=== PATIENT | male | born 1940 | race Caucasian/White ===

== ENCOUNTER 2020-02-23 12:32 | Inpatient (IN) | payer OTHER, MEDICAID, SELFPAY ==
[~2020-02-23] VITALS: Ht 162.6 cm; Wt 68.0 kg
[2020-02-23 12:41] VITALS: BP_SYST 100
--- NOTE | 2020-02-23 12:42 | NUR ---
Patient to ER bed 7 to gown for evaluation. Side rails up. Report given to JODI AQUINO.
--- NOTE | 2020-02-23 12:45 | NUR ---
Patient presented to ER C/O of fever. Patient ambulatory to ER,BIB by son, A&Ox4, afebrile, skin pink & warm, ostomy to right abdomen right anterior abdomen well sealed, denies pain , denies N/V/D, Son of patient states patient had fever 2 days ago, and passed kidney stone 3 days ago.
--- NOTE | 2020-02-23 12:50 | NUR ---
SON OF PATIENT AT BEDSIDE
--- NOTE | 2020-02-23 13:15 | NUR ---
ER Dr. Rice at bedside examining patient.
--- NOTE | 2020-02-23 13:50 | NUR ---
RADIOLOGY AT BEDSIDE.
--- NOTE | 2020-02-23 14:10 | NUR ---
# 20 gauge angiocath placed to right AC . Use of asceptic technique. Opsite placed over site. Blood return noted. Blood for lab drawn from site. Flushed with 10 cc of normal saline. No evidence of infiltration noted. Patient tolerated well.
[2020-02-23 14:24] LABS: BILIRUBIN,URINE NEGATIVE (NEGATIVE); BLOOD, URINE 3+ (NEGATIVE); GLUCOSE,URINE NEGATIVE (NEGATIVE); KETONES,URINE NEGATIVE (NEGATIVE); LEUKOCYTE ESTERASE ,URINE 3+ (NEGATIVE); NITRITE, URINE NEGATIVE (NEGATIVE); PH,URINE 6.5 (5.0-8.0); PROTEIN URINE 1+ (NEGATIVE); UROBILINOGEN,URINE 0.2 (0.2-1.0)
[2020-02-23] MEDS ORDERED: cefTRIAXone 1 GM in D5W 50 ML IV ONE (14:30)
[2020-02-23] MEDS ORDERED: cefTRIAXone 1 GM VIAL ONE (14:31)
[2020-02-23 14:45] LABS: BACTERIA,URINE MANY /HPF (None Seen); CLARITY/URINE CLOUDY (CLEAR); COLOR,URINE RED (YELLOW); RBC,URINE >100 /HPF (0-3); WBC,URINE >100 /HPF (0-3)
[2020-02-23 15:04] LABS: BASOPHILS # (AUTO) 0.1 K/uL (0.0-0.2); BASOPHILS % (AUTO) 0.4 % (0.0-2.0); EOSINOPHILS # (AUTO) 0.1 K/uL (0.0-0.4); EOSINOPHILS % (AUTO) 0.5 % (0.0-4.0); HEMATOCRIT 30.4 % (36-54); HEMOGLOBIN 10.3 g/dL (14.0-18.0); LYMPHOCYTES # (AUTO) 1.3 K/uL (1.0-5.5); LYMPHOCYTES % (AUTO) 6.6 % (20.5-51.5); MEAN CORPUSCULAR HEMOGLOBIN 31 pg (27-31); MEAN CORPUSCULAR HGB CONC 34 % (32-36); MEAN CORPUSCULAR VOLUME 90 fL (79.0-98.0); MONOCYTES # (AUTO) 1.3 K/uL (0.0-1.0); MONOCYTES % (AUTO) 6.6 % (1.7-9.3); NEUTROPHILS # (AUTO) 16.4 K/uL (1.8-7.7); NEUTROPHILS % (AUTO) 85.9 % (40.0-70.0); PLATELET COUNT (AUTO) 304 K/uL (130-430); RED BLOOD CELL COUNT(AUTO) 3.38 MIL/uL (4.2-6.2); WHITE BLOOD COUNT (AUTO) 19.1 K/uL (4.8-10.8)
--- NOTE | 2020-02-23 15:15 | NUR ---
SON OF PATIENT PT RESTING IN [facility]
[2020-02-23 15:21] LABS: ANION GAP 11 (5-15); CALCIUM 9.1 mg/dL (8.4-11.0); CHLORIDE 93 mmol/L (98-107); CREATININE 3.24 mg/dL (0.55-1.30); GLUCOSE 262 mg/dL (70-99); POTASSIUM 4.3 mmol/L (3.5-5.1); SODIUM SERUM 126 mmol/L (136-145); UREA NITROGEN, BLOOD 68 mg/dL (8-21)
[2020-02-23 15:28] LABS: ALANINE AMINOTRANSFERASE 42 U/L (12-78); ALBUMIN 2.8 g/dL (3.4-4.8); ASPARTATE AMINOTRANSFERASE 19 U/L (10-37); LIPASE 214 U/L (73-393); TOTAL BILIRUBIN 0.7 mg/dL (0.0-1.0)
[2020-02-23 15:35] LABS: PROTHROMBIN TIME 9.9 SECS (9.5-12.5)
[2020-02-23] MEDS ORDERED: NS 500 ML IV ONE (16:45)
--- NOTE | 2020-02-23 16:47 | NUR ---
ADMIT ORDERS FROM DR. TOBAR
--- NOTE | 2020-02-23 17:01 | NUR ---
Patient will be admitted to care of DR. TOBAR. Admitted to TELE unit. Will go to room 101B. Belongings list completed. Complete and up to date summary report printed. SBAR report to be given at bedside with opportunity for questions.
[2020-02-23 17:20] VITALS: BP_SYST 119
--- NOTE | 2020-02-23 17:20 | NUR ---
ADMISSION NOTE: Received patient from ER via gurney. Patient admitted with diagnosis of Cholecystitis, renal failure. Patient is awake, alert, oriented X 3. Patient oriented to hospital room, call light, toileting, pain management and safety-teach back done. Patient informed that Tiffanie will be his nurse and that their room number is 101B. Personal belongings checked and Belongings List documented. Call light within reach.
[2020-02-23 17:29] VITALS: BP_SYST 119
[2020-02-23 17:34] VITALS: BP_SYST 119
--- NOTE | 2020-02-23 17:35 | NUR ---
INITIAL NOTE: RECEIVED PATIENT AND REPORT FROM ER NURSE JODI. PATIENT IS AWAKE AND ALERT x3 LAYING DOWN IN BED. PATIENT IS TOLERATING OXYGEN ON ROOM AIR WITH NO SIGNS OF DISTRESS OR SHORTNESS OF BREATH NOTED. IV SITE IS PATENT WITH NO SIGNS OF INFILTRATION NOTED AND RUNNING IV BOLUS FROM ER. PATIENT DENIES ANY PAIN AT THE MOMENT. PATIENT WAS GIVEN URINAL AT BEDSIDE AND SHOWN WHERE THE RESTROOM IS. PATIENT IN STABLE CONDITION. SAFETY, FALL, AND ASPIRATION PRECAUTIONS ARE IN PLACE. BED LOCKED IN LOWEST POSITION WITH CALL LIGHT IN REACH. WILL CONTINUE TO MONITOR PATIENT FOR ANY CHANGES.
[2020-02-23] MEDS ORDERED: POTA20TA83 PO (18:21)
[2020-02-23] MEDS ORDERED: FAMO-129 PO (18:21)
[2020-02-23] MEDS ORDERED: DRON2.5C22 PO (18:21)
[2020-02-23] MEDS ORDERED: ONDANSETRON HCL 4 MG/2 ML VIAL IVP PRN (18:30)
[2020-02-23] MEDS ORDERED: MORPHINE 2 MG/ML INJ. SYRINGE IVP PRN (18:30)
[2020-02-23] MEDS ORDERED: MORPHINE 4 MG/ML INJ. SYRINGE IVP PRN (18:30)
[2020-02-23] MEDS ORDERED: PIPERACILLIN/TAZO 3.375/DEX-IS 50 ML IV SCH (18:30)
[2020-02-23] MEDS ORDERED: ACETAMINOPHEN 325 MG TABLET PO PRN (18:30)
[2020-02-23] MEDS ORDERED: METOCLOPRAMIDE HCL 10 MG/2 ML VIAL IVP PRN (18:30)
[2020-02-23] MEDS: D5NS 1,000 ML IV SCH (18:50)
--- NOTE | 2020-02-23 18:55 | NUR ---
CLOSING NOTES: PATIENT IS AWAKE AND ALERT x3 LAYING DOWN IN BED. PATIENT IS TOLERATING OXYGEN ON ROOM AIR WITH NO SIGNS OF DISTRESS OR SHORTNESS OF BREATH NOTED. IV SITE IS PATENT WITH NO SIGNS OF INFILTRATION NOTED AND RUNNING IV FLUIDS ORDERED. PATIENT DENIES ANY PAIN AT THE MOMENT. PATIENT IN STABLE CONDITION. SAFETY, FALL, AND ASPIRATION PRECAUTIONS REMAINED IN PLACE THROUGHOUT THE SHIFT. BED LOCKED IN LOWEST POSITION WITH CALL LIGHT IN REACH. WILL ENDORSE PATIENT CARE TO ONCOMING LAYBOY OPERATOR NURSE.
--- NOTE | 2020-02-23 19:30 | NUR ---
OPENING NOTES: Received report from dayshift nurse. Patient is Cymro speaking, A & O x4 with no s/s of distress or discomfort. He is on room air with unlabored breathing. He has IV on left wrist with dry dressing. Patient is ambulatory with steady gait. Ensured all safety precautions. Bed is locked and in the lowest position. Call light within reach.
[2020-02-23 20:00] VITALS: BP_SYST 109
--- NOTE | 2020-02-23 20:00 | NUR ---
VITALS: Patient's BP is 109/61 HR at 49, asymptomatic. He has weak pulses. He does not have an c/o pain or discomfort and denies any dizziness. Patient states he is comfortable at this time. Patient has T wave elevation on tele. Will notify .
--- NOTE | 2020-02-23 20:40 | NUR ---
SPOKE WITH DR. MONCADA Informed Dr. Moncada regarding pt's heart rate at 43-49, asymptomatic. He ordered a one time bolus of NS and cardiac consult with Dr. Hanson. Will place orders and page cardio.
--- NOTE | 2020-02-23 20:40 | NUR ---
Paged Song Painter, s/w Ajay
--- NOTE | 2020-02-23 20:55 | NUR ---
PATIENT OFF FLOOR TO RADIOLOGY FOR [facility].
--- NOTE | 2020-02-23 21:33 | NUR ---
Paged Dr. Wolf Song
[2020-02-23] MEDS ORDERED: PIPERACILLIN/TAZOBACTAM 2.25 GM VIAL IV ONE (21:51)
--- NOTE | 2020-02-23 21:51 | NUR ---
Paged Dr. Pierre s/w Reena
--- NOTE | 2020-02-23 22:59 | NUR ---
Second call for Dr. Long, salesperson men's and boys' clothing for Dr. Pierre s/w Melissa
--- NOTE | 2020-02-23 23:29 | NUR ---
PATIENT HAS RETURNED FROM [facility]
[2020-02-23] MEDS ORDERED: NACL 0.9% 1,000 ML IV ONE (23:30)
[2020-02-23] MEDS: PIPERACILLIN/TAZO 2.25G/DEX-IS 50 ML IV SCH (23:34)
--- NOTE | 2020-02-23 23:53 | NUR ---
MEDICATION ADMINISTRATION: Patient is in bed, in stable condition. He does not have any complaints at this times. I administered IV antibiotics as ordered, pt tolerating well. I educated the patient in Thai about the purpose for the antibiotics and potential side effects. He verbalized understanding and does not have any questions or concerns at this time. Bed is in the lowest position and call light within reach. Will continue to monitor patient.
[2020-02-24] VITALS: BP_SYST 104
--- NOTE | 2020-02-24 02:11 | NUR ---
Consultation Paged Reason for Consultation: Cholecystitis Was consult called: Y Person who was notified: Tele Consulting Physician: Hunter Perez Ordering Physician: Dr. White
--- NOTE | 2020-02-24 04:56 | NUR ---
Consultation Paged Reason for Consultation: Bradycardia/ T wave elevation Was consult called: Y Person who was notified: Dr. Long (RN Dustin spoke to him) Consulting Physician: Dr. Pierre (Dr. Long is route contractor) Ordering Physician: Song Painter
[2020-02-24] MEDS: PIPERACILLIN/TAZO 2.25G/DEX-IS 50 ML IV SCH ×3 (06:02→21:44)
[2020-02-24] MEDS: D5NS 1,000 ML IV SCH (06:06)
--- NOTE | 2020-02-24 07:05 | NUR ---
CLOSING NOTES: Patient is laying in bed and appears to be asleep. He is in stable condition. He is on room air with unlabored breathing. He has IV on left wrist with dry dressing. Patient is ambulatory with steady gait. Ensured all safety precautions. Bed is locked and in the lowest position. Call light within reach. All needs were met throughout shift. Will endorse to dayshift nurse.
[2020-02-24 08:00] VITALS: BP_SYST 116
--- NOTE | 2020-02-24 08:25 | NUR ---
Received patient and report from MST nurse. Side rails x 3 up. Call light with in reach.
[2020-02-24 11:15] LABS: BASOPHILS % (AUTO) 0.2 % (0.0-2.0); EOSINOPHILS # (AUTO) 0.1 K/uL (0.0-0.4); EOSINOPHILS % (AUTO) 0.5 % (0.0-4.0); HEMATOCRIT 33.7 % (36-54); HEMOGLOBIN 11.1 g/dL (14.0-18.0); LYMPHOCYTES # (AUTO) 1.3 K/uL (1.0-5.5); LYMPHOCYTES % (AUTO) 6.9 % (20.5-51.5); MEAN CORPUSCULAR HEMOGLOBIN 30 pg (27-31); MEAN CORPUSCULAR HGB CONC 33 % (32-36); MEAN CORPUSCULAR VOLUME 90 fL (79.0-98.0); MONOCYTES # (AUTO) 1.1 K/uL (0.0-1.0); NEUTROPHILS # (AUTO) 16.6 K/uL (1.8-7.7); NEUTROPHILS % (AUTO) 86.4 % (40.0-70.0); PLATELET COUNT (AUTO) 356 K/uL (130-430); RED BLOOD CELL COUNT(AUTO) 3.75 MIL/uL (4.2-6.2); WHITE BLOOD COUNT (AUTO) 19.2 K/uL (4.8-10.8)
[2020-02-24] MEDS ORDERED: NACL 0.9% 1,000 ML IV ONE (11:15)
[2020-02-24 11:26] LABS: ANION GAP 8 (5-15); CALCIUM 8.7 mg/dL (8.4-11.0); CHLORIDE 100 mmol/L (98-107); CREATININE 3.19 mg/dL (0.55-1.30); GLUCOSE 296 mg/dL (70-99); POTASSIUM 4.2 mmol/L (3.5-5.1); SODIUM SERUM 132 mmol/L (136-145); UREA NITROGEN, BLOOD 57 mg/dL (8-21)
[2020-02-24] MEDS ORDERED: DEXTROSE 50% JECT 50 ML DISP.SYRIN IVP PRN (11:30)
[2020-02-24 11:32] LABS: ALANINE AMINOTRANSFERASE 38 U/L (12-78); ALBUMIN 2.6 g/dL (3.4-4.8); ASPARTATE AMINOTRANSFERASE 14 U/L (10-37); TOTAL BILIRUBIN 0.5 mg/dL (0.0-1.0)
[2020-02-24 12:13] VITALS: BP_SYST 136
[2020-02-24] MEDS: NACL 0.9% 1,000 ML IV SCH ×2 (12:29→21:30)
--- NOTE | 2020-02-24 15:10 | NUR ---
Oh at bedside assessing patient.
--- NOTE | 2020-02-24 16:15 | NUR ---
Lab called for preliminary report for positive blood culture gram stain gram positive cocci in cluster. MD Cindy molina.
[2020-02-24 16:24] VITALS: BP_SYST 115
--- NOTE | 2020-02-24 16:40 | NUR ---
and son in law came to visit patient to help discuss the benefit and risks of surgery for laparoscopic scheduled tomorrow morning by Oh. Educated patient x3 with refusal x 3. Informed MD Green.
--- NOTE | 2020-02-24 17:10 | NUR ---
MD White paged a second time regarding blood culture.
--- NOTE | 2020-02-24 17:18 | NUR ---
MD White called back, reported gram positive cocci in clusters preliminary report from blood culture, new order 1 gram of vanco one time. Orders placed.
[2020-02-24] MEDS ORDERED: VANCOMYCIN HCL 1 GM/NS PREMIX 250 ML IV ONE (17:30)
--- NOTE | 2020-02-24 17:45 | NUR ---
Patient refused to take briefs off after informing patient policy to wear no pants with chucks although patient uses urinal and has an ostomy bag. Patient requested to call family to ask them to bring more briefs with 2 pairs of pants, called daughter Stefanie and left message.
--- NOTE | 2020-02-24 18:49 | NUR ---
Paged Dr. Green s/w Hector
[2020-02-24 19:00] VITALS: BP_SYST 137
--- NOTE | 2020-02-24 19:05 | NUR ---
Md Green called back, informed radiologist has to be present for the CT guided percutaneous drain abscess for percutaneous cholecystostomy tube placement, approved to switch to tomorrow morning, will endorse to NOC shift nurse to follow up.
--- NOTE | 2020-02-24 19:15 | NUR ---
change of shift.pt.presents quiescent affect;calm,resting viewing tv programming.pt.was to have submitted to the procedure; tonya-choley,possible open,possible angiogram:02/25/20 per .pt.had refused. provided a 2nd option:percutaneous cholecystostomy tube placement.to f/u w the pt.pt.presents iv access intact;patent iv fluids infusing.pt.presents colostomy: mid-line;intact;patent.pt.presents iv access intact;patent iv fluids infusing.pt's diet status;npo.pt.presents hx;diabetic;to assess the blood glucose q-6hrs.pt.utilizing the urinal w/in access of the pt.call light/telephone w/in access of the pt.
--- NOTE | 2020-02-24 19:28 | NUR ---
Endorsed patient and gave report to [facility] shift nurse. Patient in bed with side rails x 3 up. Call light with in reach. Endorsed to [facility] shift nurse to educate and receive consent for patient for the CT guided percutaneous drain abscess for percutaneous cholecystostomy tube placement.
[2020-02-24 20:00] VITALS: BP_SYST 132
--- NOTE | 2020-02-24 20:00 | NUR ---
pt.assessed.v/s assessed values w/in normal limits.no c/o pain,nausea.colostomy intact;patent.iv access intact;patent iv fluids infusing. language barrier extant;pt's primary language;ukrainian.to attend to the pt.;ukrainian.no c/o pain,nausea.i have attended to the urinal.measured/cleaned placed w/in access of the pt.pt.capable to reposition self.general status stable.respiratory status stable;unlabored.call light/telephone placed w/in access of the pt.
--- NOTE | 2020-02-24 21:00 | NUR ---
2100pmedication administered.no c/p pain,nausea.no requests posited@this hour.
[2020-02-24] MEDS ORDERED: LEVOFLOXACIN 500 MG/D5W 100 ML IV SCH (21:30)
[2020-02-24] MEDS ORDERED: LEVOFLOXACIN 500 MG/D5W 100 ML IV ONE ×2 (21:30→21:59)
--- NOTE | 2020-02-24 21:40 | NUR ---
PAGED PAGED DOCTOR CAROLE HUNTER
--- NOTE | 2020-02-24 22:00 | NUR ---
pt.assessed.pt.presents quiescent affect;calm,somnolent.per flacc pain mgx pt.absent facial grimaces/body posturing.i have attended to the urinal:measured/cleaned placed w/in access of the pt.;a paged returned the page.i apprised that the pt.has refused the 2nd option;procedure;percutaneous cholecystotomy tube placement;family;grd-dtr telephoned the unit spoke w the pt.pt.still refused the 2nd option.i apprised that the pt.is diabetic and npo diet status. order diet;ccho. no c/o pain,nausea.pt.capable to reposition self.iv access intact;patent iv fluids infusing.call light/telephone placed w/in access of the pt.i have administered levaquin:500mg ivpbx1;initial dose. Addendum: 02/25/20 at 0115 by Shukri Anglin RN ;a on-call was paged.returned the page.re;levaquin;subsequent dose.i apprised dr.paliwal zavala ordered levaquin;500mg ivpb;subsequent dose:levaquin:250mg q-24hrs.pharmacy noted the cr/cl:values elevated recommended levaquin;250mg ivpb q-48grs. ordered levaquin;250mg ivpb q-48hrs. Addendum: 02/25/20 at 0116 by Shukri Anglin RN colostomy assessed:intact;patent.
[2020-02-25] VITALS: BP_SYST 133
--- NOTE | 2020-02-25 | NUR ---
pt.assessed.pt.presents quiescent affect;calm,resting.v/s assessed values w/in normal limits.no c/o pain,nausea.no requests posited@this hour. i have assessed the blood glucose:value:312mg/dl.I have apprised the pt.of the blood glucose value;i have administered insulin;regular;8-units.pt.capable to reposition self.general status stable.respiratory status stable;unlabored call light/ telephone placed w/in access of the pt. Addendum: 02/25/20 at 0115 by Shukri Anglin RN colostomy assessed ;intact;patent.
[2020-02-25] MEDS: INSULIN REGULAR, HUMAN 100 UNITS/ML, 10 ML VIAL (humuLIN R) SUBCUT PRN ×3 (00:29→23:30)
--- NOTE | 2020-02-25 02:00 | NUR ---
pt.assessed,pt.presents quiescent affect;calm,somnolent.per flacc pain mgx pt.absent facial grimaces/body posturing. iv access intact;patent iv fluids infusing.i have attended to the urinal:measured/cleaned placed w/in access of the pt. pt.capable to reposition self.general status stable.respiratory status stable;unlabored.call light/telephone placed w/in access of the pt.
--- NOTE | 2020-02-25 03:59 | NUR ---
pt.assessed.pt.presents quiescent affect;calm,somnolent.per flacc pain mgx pt.absent facial grimaces/body posturing. iv access intact;patent iv fluids infusing.i have attended to the urinal;measured/cleaned placed w/in access of the pt. pt.capable to reposition self.general status stable.respiratory status stable;unlabored.call light/telephone placed w/in access of the pt.
[2020-02-25] MEDS: NACL 0.9% 1,000 ML IV SCH ×2 (04:15→17:19)
[2020-02-25] MEDS: PIPERACILLIN/TAZO 2.25G/DEX-IS 50 ML IV SCH ×3 (05:21→21:07)
[2020-02-25] MEDS ORDERED: DEXTROSE 50% JECT 50 ML DISP.SYRIN ONE (05:35)
--- NOTE | 2020-02-25 06:12 | NUR ---
pt.assessed.blood glucose assessed value;65-66mg/dl.i have administered dextrose:50ml.to re-assess the blood glucose per protocol.i have provided oj;juice.i have administered zosyn:ivpb abx 0600a dose.no c/o pain,nausea.i have attended to the urinal:measured/cleaned placed w/in access of the pt.call light/telephone paced w/in acces of the pt.
[2020-02-25 06:43] LABS: BASOPHILS # (AUTO) 0.1 K/uL (0.0-0.2); BASOPHILS % (AUTO) 0.5 % (0.0-2.0); EOSINOPHILS # (AUTO) 0.1 K/uL (0.0-0.4); EOSINOPHILS % (AUTO) 0.4 % (0.0-4.0); HEMATOCRIT 25.1 % (36-54); HEMOGLOBIN 8.3 g/dL (14.0-18.0); LYMPHOCYTES # (AUTO) 0.9 K/uL (1.0-5.5); LYMPHOCYTES % (AUTO) 5.8 % (20.5-51.5); MEAN CORPUSCULAR HEMOGLOBIN 30 pg (27-31); MEAN CORPUSCULAR HGB CONC 33 % (32-36); MEAN CORPUSCULAR VOLUME 90 fL (79.0-98.0); MONOCYTES # (AUTO) 1.3 K/uL (0.0-1.0); NEUTROPHILS # (AUTO) 13.7 K/uL (1.8-7.7); NEUTROPHILS % (AUTO) 85.3 % (40.0-70.0); PLATELET COUNT (AUTO) 281 K/uL (130-430); RED CELL DISTRIBUTION WIDTH 13.1 % (9.0-15.0)
[2020-02-25 07:50] LABS: CHOLESTEROL 112 mg/dL (<200); TRIGLYCERIDES 212 mg/dL (30-150)
[2020-02-25 07:51] LABS: HDL CHOLESTEROL 15 mg/dL (>45); LDL CHOLESTEROL 71 mg/dL (<100); LIPASE 145 U/L (73-393)
[2020-02-25 07:52] LABS: ALANINE AMINOTRANSFERASE 24 U/L (12-78); ALBUMIN 2.1 g/dL (3.4-4.8); ANION GAP 9 (5-15); ASPARTATE AMINOTRANSFERASE 9 U/L (10-37); CHLORIDE 106 mmol/L (98-107); CREATININE 2.94 mg/dL (0.55-1.30); GLUCOSE 152 mg/dL (70-99); POTASSIUM 4.2 mmol/L (3.5-5.1); SODIUM SERUM 136 mmol/L (136-145); TOTAL BILIRUBIN 0.5 mg/dL (0.0-1.0); UREA NITROGEN, BLOOD 48 mg/dL (8-21)
--- NOTE | 2020-02-25 08:10 | NUR ---
AM ROUNDS: NIGHT NURSE MARIA E GAVE REPORT. PATIENT LYING ON THE BED.AWAKE,ALERT AND ORIENTED X3. ALBANIAN SPEAKING MALE. CALL LIGHT WITH IN REACH. BED LOCKED AT LOWEST POSITION. NO ACUTE DISTRESS.
[2020-02-25 08:15] VITALS: BP_SYST 134
[2020-02-25 08:34] LABS: AFP, TUMOR MARKER 1.5 ng/mL (0.0-8.3)
--- NOTE | 2020-02-25 09:30 | NUR ---
RN ROUNDS: PATIENT SITTING ON THE BED,HAVING BREAKFAST. NO PROBLEM.
--- NOTE | 2020-02-25 11:48 | NUR ---
Blood Sugar: Blood sugar taken,with insulin coverage given per sliding scale. No problem.
[2020-02-25 11:59] VITALS: BP_SYST 131
--- NOTE | 2020-02-25 12:04 | NUR ---
Dietitian Recommendations *[facility]. *Encourage pt to increase PO intake. Please see Nutritional Assessment for details. LAURENT, DENNIS
--- NOTE | 2020-02-25 13:03 | NUR ---
RN ROUNDS: RESTING. NO PROBLEM.
--- NOTE | 2020-02-25 14:23 | NUR ---
PA ROUNDS: DR GOODEN DOING ROUNDS,PATIENT STILL REFUSING THE SURGERY ,TEACHINGS GIVEN TO PATIENT WITH RUG REPAIRER BUT STILL NOT AGREEABLE. PER SURGERY CLEAR FOR DC AND CONTINUE ANTIBIOTICS.WAITING FOR HOSPITALIST TO DC PT.
--- NOTE | 2020-02-25 16:30 | NUR ---
FAMILY CALLED: UPDATES GIVEN TO GRANDDAUGHTER AND WILL ENDORSED TO NIGHT NURSE.
--- NOTE | 2020-02-25 17:20 | NUR ---
BLOOD SUGAR: BLOOD SUGAR TAKEN,NO INSULIN COVERAGE PER SLIDING SCALE.
[2020-02-25 18:04] VITALS: BP_SYST 125
--- NOTE | 2020-02-25 18:18 | NUR ---
END OF SHIFT: PATIENT SITTING ON THE BED,HAVING DINNER. CALL LIGHT WITH IN REACH. BED LOCKED AT LOWEST POSITION. NOT IN ANY DISTRESS.
--- NOTE | 2020-02-25 19:10 | NUR ---
OPENING NOTES RECEIVED PATIENT RESTING, NO SIGNS OF ACUTE RESPIRATORY DISTRESS NOTED. RECEIVED REPORT THAT PATIENT REFUSED SURGERY WHEN EDUCATION PROVIDED BY DR. HUNTER AND DR. GOODEN. IV SITE PATENT, DRESSINGS C/D/I. CALL LIGHT WITHIN REACH, BED ALARM REFUSED AFTER PATIENT DEMONSTRATED PROPER USAGE OF CALL LIGHT. WILL CONTINUE TO MONITOR.
[2020-02-25 20:00] VITALS: BP_SYST 144
--- NOTE | 2020-02-25 23:10 | NUR ---
BLOOD SUGAR OF 158, 2 UNITS OF INSULIN PROVIDED, PATIENT REFUSES SALTINES AT THIS TIME, SALTINES AT BEDSIDE, PROVIDED EDUCATION IN [place] OF HYPOGLYCEMIA. WILL CONTINUE TO MONITOR.
[2020-02-26 00:10] VITALS: BP_SYST 122
[2020-02-26 01:06] LABS: HEPATITIS A AB, IgM Negative (Negative); HEPATITIS B CORE AB, IgM Negative (Negative); HEPATITIS B SURFACE AG Negative (Negative)
--- NOTE | 2020-02-26 01:18 | NUR ---
PATIENT RESTING, NO SIGNS OF DISTRESS NOTED. CALL LIGHT WITHIN REACH. WILL CONTINUE TO MONITOR.
[2020-02-26] MEDS: NACL 0.9% 1,000 ML IV SCH ×2 (05:19→17:34)
[2020-02-26] MEDS: PIPERACILLIN/TAZO 2.25G/DEX-IS 50 ML IV SCH (05:19)
--- NOTE | 2020-02-26 05:56 | NUR ---
CLOSING NOTES PATIENT IS RESTING, NO SIGNS OF ACUTE RESPIRATORY DISTRESS NOTED. COUGHING AT TIMES. IV SITE PATENT, DRESSINGS C/D/I, IVF RUNNING. COLOSTOMY BAG CHANGED. CALL LIGHT WITHIN REACH, BED ALARM ON, BED AT LOWEST POSITION. ALL NEEDS MET THROUGHOUT SHIFT. WILL ENDORSE CARE TO ONCOMING SHIFT.
--- NOTE | 2020-02-26 08:01 | NUR ---
Nutrition Update Tony scale 18 noted. Pt admitted for cholecystitis and renal failure Diet: CCHO, Low Fat Diet BMI: 22.3 kg/m2 RD to follow per nutrition care standards.
[2020-02-26 08:10] VITALS: BP_SYST 139
--- NOTE | 2020-02-26 08:15 | NUR ---
ASSUMPTION OF CARE: RECEIVED PT A/A/OX4, DX:ALTERATION IN ELIMINATION, R/T CHOLECYSTITIS, RENAL FAILURE, AFEBRILE, VS WNL, NO C/O PAIN OR DISCOMFORT, BREATH SOUNDS ARE CLEAR, BREATHING UNLABORED, SATURATING 100% ORA, IV SITE INTACT, PATENT, NO REDNESS OR SWELLING, ORIENTED TO UNIT AND ACACIA LIGHT, PLACED WITHIN REACH, WILL CONT' TO MONITOR AND ASSESS.
--- NOTE | 2020-02-26 10:45 | NUR ---
VISIT: AT BEDSIDE FOR ASSESSMENT OF PT, NEW ORDERS GIVEN, WILL CONT' TO MONITOR AND ASSESS.
--- NOTE | 2020-02-26 10:59 | NUR ---
CONSULTATION PAGED REASON FOR CONSULTATION:SEPSIS WAS CONSULT CALLED?Y PERSON WHO WAS NOTIFIED:LANG CONSULTING PHYSICIAN:HELEN PEREZ DIRECTOR ELECTRICAL ENGINEERING SPECIALTY:INFECTIOUS DISEASE DIRECTOR ELECTRICAL ENGINEERING PHONE NUMBER:[phone] ORDERING PHYSICIAN:LENO BISHOP
--- NOTE | 2020-02-26 11:02 | NUR ---
CONSULTATION PAGED REASON FOR CONSULTATION:RENAL FAILURE WAS CONSULT CALLED?Y PERSON WHO WAS NOTIFIED:LANG CONSULTING PHYSICIAN:JOYCE LUCIANO BUS DRIVER SUPERVISOR SPECIALTY:RENAL BUS DRIVER SUPERVISOR PHONE NUMBER:[phone] ORDERING PHYSICIAN:LENO BISHOP
--- NOTE | 2020-02-26 11:04 | NUR ---
CONSULTATION PAGED/CALLED Reason for Consultation: RENEAL FAILURE Person Who was Notified: LANG Consulting Physician: DARRON Ordering Physician: EKATERINA
[2020-02-26 11:14] LABS: BASOPHILS # (AUTO) 0.1 K/uL (0.0-0.2); BASOPHILS % (AUTO) 0.5 % (0.0-2.0); EOSINOPHILS # (AUTO) 0.1 K/uL (0.0-0.4); EOSINOPHILS % (AUTO) 0.5 % (0.0-4.0); HEMOGLOBIN 9.1 g/dL (14.0-18.0); LYMPHOCYTES # (AUTO) 1.3 K/uL (1.0-5.5); MEAN CORPUSCULAR HEMOGLOBIN 30 pg (27-31); MEAN CORPUSCULAR HGB CONC 34 % (32-36); MEAN CORPUSCULAR VOLUME 89 fL (79.0-98.0); MONOCYTES # (AUTO) 1.4 K/uL (0.0-1.0); MONOCYTES % (AUTO) 8.6 % (1.7-9.3); NEUTROPHILS # (AUTO) 13.7 K/uL (1.8-7.7); NEUTROPHILS % (AUTO) 82.4 % (40.0-70.0); PLATELET COUNT (AUTO) 307 K/uL (130-430); RED BLOOD CELL COUNT(AUTO) 3.03 MIL/uL (4.2-6.2); RED CELL DISTRIBUTION WIDTH 13.1 % (9.0-15.0); WHITE BLOOD COUNT (AUTO) 16.6 K/uL (4.8-10.8)
[2020-02-26 11:16] LABS: ANION GAP 12 (5-15); CALCIUM 8.1 mg/dL (8.4-11.0); CHLORIDE 104 mmol/L (98-107); CREATININE 3.12 mg/dL (0.55-1.30); GLUCOSE 129 mg/dL (70-99); POTASSIUM 4.4 mmol/L (3.5-5.1); SODIUM SERUM 137 mmol/L (136-145); UREA NITROGEN, BLOOD 38 mg/dL (8-21)
[2020-02-26 11:22] LABS: ALANINE AMINOTRANSFERASE 24 U/L (12-78); ALBUMIN 2.1 g/dL (3.4-4.8); ASPARTATE AMINOTRANSFERASE 13 U/L (10-37); TOTAL BILIRUBIN 0.7 mg/dL (0.0-1.0)
[2020-02-26] MEDS: cefTRIAXone 1 GM IVPB PREMIX 50 ML IV SCH (12:00)
--- NOTE | 2020-02-26 12:00 | NUR ---
GLUCOSE MONITORING: BLOOD SUGAR [id number]=282, NO COVERAGE REQUIRED, SITTING UP IN BED, ABLE TO FEED HIMSELF, NEEDS MET, CALL LIGHT WITHIN REACH, WILL CONT' WITH PLAN OF CARE.
[2020-02-26 12:13] LABS: HEMOGLOBIN A1C 7.4 % (4.8-5.6)
[2020-02-26] MEDS ORDERED: *CUBICIN 6 MG/KG Q48H/PHARMACY XX PRN (12:15)
[2020-02-26 12:31] VITALS: BP_SYST 130
--- NOTE | 2020-02-26 16:30 | NUR ---
VISIT: FOR ASSESSMENT OF PT, DISCUSSED POC, VERBALIZES UNDERSTANDING, WILL CONT' WITH POC.
[2020-02-26 16:33] VITALS: BP_SYST 147
[2020-02-26] MEDS: DAPTOmycin 350 MG in NS 50 ML IV SCH (16:36)
--- NOTE | 2020-02-26 17:00 | NUR ---
GLUCOSE MONITORING: BLOOD SUGAR [id number], NO COVERAGE REQUIRED, WILL CONT' WITH POC.
--- NOTE | 2020-02-26 19:25 | NUR ---
Opening note Patient is awake, resting in bed, high fowlers and watching t.v. IVF infusing via IV LFA. No distress and denies pain. Bed is locked in lowest position, side rails up 2x and bed alarm off, patient is ambulatory w/ steady gait, instructed on use of call light.
[2020-02-26 20:00] VITALS: BP_SYST 147
[2020-02-26] MEDS ORDERED: LEVOFLOXACIN 250 MG/D5W 50 ML IV SCH (21:00)
[2020-02-27 01:00] VITALS: BP_SYST 135
--- NOTE | 2020-02-27 01:00 | NUR ---
accucheck, V/S accucheck result was 72 mg/dL; no coverag. Patient denies pain, has no requests. VSS, no distress, IVF infusing well.
[2020-02-27] MEDS: NACL 0.9% 1,000 ML IV SCH ×3 (01:11→19:30)
[2020-02-27] MEDS: INSULIN REGULAR, HUMAN 100 UNITS/ML, 10 ML VIAL (humuLIN R) SUBCUT PRN ×2 (01:14→12:29)
--- NOTE | 2020-02-27 06:05 | NUR ---
accucheck accucheck result was 72 mg/dL; no coverag. Patient denies pain, has no requests.
[2020-02-27 06:23] LABS: BASOPHILS # (AUTO) 0.1 K/uL (0.0-0.2); BASOPHILS % (AUTO) 0.5 % (0.0-2.0); EOSINOPHILS # (AUTO) 0.1 K/uL (0.0-0.4); EOSINOPHILS % (AUTO) 0.9 % (0.0-4.0); HEMATOCRIT 25.2 % (36-54); HEMOGLOBIN 8.5 g/dL (14.0-18.0); LYMPHOCYTES # (AUTO) 1.5 K/uL (1.0-5.5); LYMPHOCYTES % (AUTO) 9.8 % (20.5-51.5); MEAN CORPUSCULAR HEMOGLOBIN 30 pg (27-31); MEAN CORPUSCULAR HGB CONC 34 % (32-36); MEAN CORPUSCULAR VOLUME 90 fL (79.0-98.0); MONOCYTES # (AUTO) 1.5 K/uL (0.0-1.0); MONOCYTES % (AUTO) 9.7 % (1.7-9.3); NEUTROPHILS # (AUTO) 12.4 K/uL (1.8-7.7); NEUTROPHILS % (AUTO) 79.1 % (40.0-70.0); PLATELET COUNT (AUTO) 350 K/uL (130-430); RED BLOOD CELL COUNT(AUTO) 2.81 MIL/uL (4.2-6.2); RED CELL DISTRIBUTION WIDTH 13.2 % (9.0-15.0); WHITE BLOOD COUNT (AUTO) 15.7 K/uL (4.8-10.8)
[2020-02-27 06:44] LABS: ALANINE AMINOTRANSFERASE 17 U/L (12-78); ALBUMIN 1.9 g/dL (3.4-4.8); ANION GAP 9 (5-15); ASPARTATE AMINOTRANSFERASE 16 U/L (10-37); CALCIUM 7.8 mg/dL (8.4-11.0); CHLORIDE 107 mmol/L (98-107); CREATININE 2.84 mg/dL (0.55-1.30); GLUCOSE 94 mg/dL (70-99); LIPASE 108 U/L (73-393); POTASSIUM 3.7 mmol/L (3.5-5.1); SODIUM SERUM 137 mmol/L (136-145); TOTAL BILIRUBIN 0.6 mg/dL (0.0-1.0); UREA NITROGEN, BLOOD 32 mg/dL (8-21)
--- NOTE | 2020-02-27 07:15 | NUR ---
closing note Endorsed care, patient awake, no distress and stable.
[2020-02-27 07:45] VITALS: BP_SYST 146
[2020-02-27] MEDS: cefTRIAXone 1 GM IVPB PREMIX 50 ML IV SCH (10:58)
[2020-02-27 12:08] VITALS: BP_SYST 120
[2020-02-27 16:12] VITALS: BP_SYST 142
[2020-02-27 19:00] VITALS: BP_SYST 141
--- NOTE | 2020-02-27 19:15 | NUR ---
change of shift.pt.presents quiescent affect;calm,resting,viewing tv programming.language barrier extant;pt's primary language: turkish.to attend to the pt:turkish.pt.presents iv fluids intact;patent iv fluids infusing.pt.presents colostomy.intact;patent. functioning.pt. utilizing the urinal.w/in access of the pt.pt.capable to reposition self.general status stable.respiratory status stable;unlabored @room air.call light/telephone placed w/in access of the pt.
[2020-02-27 20:00] VITALS: BP_SYST 141
--- NOTE | 2020-02-27 20:00 | NUR ---
pt.assessed.v/s assessed values w/in normal limits.no c/o pain,nausea.i have apprised the pt.that snacks/beverages are available w/in the shift. no requests posited@this hour.iv access intact;patent iv fluids infusing.pt.utilizing the urinal.i have attended to the urinal/measured/cleaned placed w/in access of the pt.pt.capable to reposition self.call light/telephone placed w/in access of the pt.
--- NOTE | 2020-02-27 21:00 | NUR ---
2100pmediction administered.no c/o pain,nausea.no requests posited@this hour.
--- NOTE | 2020-02-27 22:00 | NUR ---
pt.assessed.pt.presents quiescent affect;calm,somnolent.per flacc pain mgx pt.absent facial grimaces/body posturing.iv access intact;patent iv fluids infusing.i have attended to the urinal;measured/cleaned placed w/in access of the pt.iv access intact;patent iv fluids infusing. general status stable.respiratory status stable;unlaborded.pt.capable to reposition self.call light/telephone placed w/in access of the pt.
--- NOTE | 2020-02-28 | NUR ---
pt.assessed.v/s assessed values w/in normal limits.pt.presents quiescent affect;calm,resting.no c/o pain,nausea.no requests posited@this hour.i have attended to the urinal;measured/cleaned placed w/in access of the pt.iv access intact;patent iv fluids infusing.i have assessed the blood glucose value;142mg/dl.i have apprised the pt.of the blood glucose value.general status stable.respiratory status stable;unlabored.pt.capable to reposition self.call light/telephone placed w/in access of the pt.
[2020-02-28 01:30] VITALS: BP_SYST 141
--- NOTE | 2020-02-28 02:00 | NUR ---
pt.assessed.pt.presents quiescent affect;calm,somnolent.per flacc pain mgx pt.absent facial grimaces/body posturing. i have attended to the urinal/measured/cleaned placed w/in access of the pt.pt.capable to reposition self.general status stable. respiratory status stable;unlabored.call light/telephone placed w/in access of the pt.
[2020-02-28] MEDS: NACL 0.9% 1,000 ML IV SCH ×2 (03:15→15:19)
--- NOTE | 2020-02-28 04:00 | NUR ---
pt.assessed.pt.presents quiescent affect;calm,somnolent.per flacc pain mgx pt.absent facial grimaces/body posturing.iv access intact;patent iv fluids infusing.i have attended to the urinal;measured/cleaned placed w/in access of the pt.pt.capable to reposition self.general status stable.respiratory status stable;unlabored.call light/telephone placed w/in access of the pt.
--- NOTE | 2020-02-28 06:28 | NUR ---
pt.assessed.pt.presents quiescent affect;calm,resting.no c/o pain,nausea.no requests posited@this hour.i have attended to the urinal/measured/cleaned placed w/in access of the pt.iv access intact;patent iv fluids infusing.i have assessed the blood glucose;value;126mg/dl. pt.capable to reposition self.general status stable.respiratory status stable;unlabored.call light/telephone placed w/in access of the pt.
[2020-02-28 06:41] LABS: BASOPHILS # (AUTO) 0.1 K/uL (0.0-0.2); BASOPHILS % (AUTO) 0.6 % (0.0-2.0); EOSINOPHILS # (AUTO) 0.2 K/uL (0.0-0.4); EOSINOPHILS % (AUTO) 1.1 % (0.0-4.0); HEMATOCRIT 25.7 % (36-54); HEMOGLOBIN 8.6 g/dL (14.0-18.0); LYMPHOCYTES # (AUTO) 1.6 K/uL (1.0-5.5); LYMPHOCYTES % (AUTO) 9.7 % (20.5-51.5); MEAN CORPUSCULAR HEMOGLOBIN 30 pg (27-31); MEAN CORPUSCULAR HGB CONC 34 % (32-36); MEAN CORPUSCULAR VOLUME 89 fL (79.0-98.0); MONOCYTES # (AUTO) 1.3 K/uL (0.0-1.0); MONOCYTES % (AUTO) 7.9 % (1.7-9.3); NEUTROPHILS # (AUTO) 13.5 K/uL (1.8-7.7); PLATELET COUNT (AUTO) 386 K/uL (130-430); RED BLOOD CELL COUNT(AUTO) 2.88 MIL/uL (4.2-6.2); RED CELL DISTRIBUTION WIDTH 13.2 % (9.0-15.0); WHITE BLOOD COUNT (AUTO) 16.7 K/uL (4.8-10.8)
[2020-02-28 06:49] LABS: ALANINE AMINOTRANSFERASE 14 U/L (12-78); ANION GAP 9 (5-15); ASPARTATE AMINOTRANSFERASE 10 U/L (10-37); CALCIUM 7.8 mg/dL (8.4-11.0); CHLORIDE 105 mmol/L (98-107); CREATININE 2.61 mg/dL (0.55-1.30); GLUCOSE 120 mg/dL (70-99); POTASSIUM 3.7 mmol/L (3.5-5.1); SODIUM SERUM 135 mmol/L (136-145); TOTAL BILIRUBIN 0.4 mg/dL (0.0-1.0)
[2020-02-28 07:00] LABS: UREA NITROGEN, BLOOD 26 mg/dL (8-21)
[2020-02-28 08:20] VITALS: BP_SYST 143
[2020-02-28 11:29] LABS: NEUTROPHILS % (AUTO) 80.7 % (40.0-70.0)
[2020-02-28 11:34] VITALS: BP_SYST 144
--- NOTE | 2020-02-28 12:24 | NUR ---
Nutrition F/U RD reviewed pt's current EMR record including diet Hx, physician notes, nursing notes, pertinent labs/meds/procedures, care trends, and care activity. Admission Dx: Cholecystitis, Renal failure PMH: Pt presents w/: Acute cholecystitis, Acute Renal failure, Sepsis, Type 2 DM, Leukocytosis per MD notes. SARS-CoV-2 Ag rapid 02/22 Negative Current Diet Order/Nutrition Support: [facility] x3 days Subjective Info: Per EMR, pt continues to refuse Sx; fishing vessel mate notes indicate that surgeon suggests that pt be D/C home on abx and symptomatic treatment. Pt appears to be eating better, though still suboptimal to meet nutritional demands. Pt would benefit from diabetic-friendly ONS. Pertinent Medications: Reviewed Pertinent Labs: Na 135 L, BG 120 H, BUN 26 H, Cre 2.61 H, TG 212 H, WBC 16.7 H Skin Integrity Comment: Tony scale: 20; no skin issues noted Current % PO 54% average x8 meals Estimated Energy Expenditure (kcals/day) 8445-1489 Kcal/day (30-35 kcal/kg CBW for sepsis) Estimated Protein Required (g/day) 59-70gm/day (1-1.2 gm/kg CBW for Renal Dz predialysis and sepsis) Estimated Fluid Required (l/day) per MD (ARF) Problem/Etiology/Signs/Symptoms Increased nutrient needs r/t metabolic demands AEB estimated calories for sepsis. *ongoing Altered nutrition related labs r/t endocrine and renal dysfunction AEB elevated BG, BUN and SCre lab values. *ongoing Inadequate protein-energy intake r/t poor appetite 2/2 pathophysiological factors AEB poor PO intake per pt report and c/o pain. *ongoing Expected Outcomes/Goals Monitor appetite and PO intake w/ goal of pt meeting more than 75% of estimated nutritional needs, labs trending WNL, normal GI function, skin integrity/wt maintenance. Dietitian Recommendations *Recommend [facility] diet w/ Glucerna BID (ONS provides 440 kcal/day, 20 gm protein/day) Follow Up High Risk: F/U in 2-3 days Addendum: 02/28/20 at [address] CORRECTION: Current Diet Order/Nutrition Support: CCHO, cardiac x3 days Dietitian Recommendations *Recommend CCHO, cardiac diet w/ Glucerna BID (ONS provides 440 kcal/day, 20 gm protein/day)
--- NOTE | 2020-02-28 12:29 | NUR ---
Dietitian Recommendations *Recommend CCHO diet w/ Glucerna BID (ONS provides 440 kcal/day, 20 gm protein/day) DEANN, RD Please refer to Nutrition F/U for details. Addendum: 02/28/20 at [address] CORRECTION: *Recommend CCHO, cardiac diet w/ Glucerna BID (ONS provides 440 kcal/day, 20 gm protein/day)
[2020-02-28] MEDS: cefTRIAXone 1 GM IVPB PREMIX 50 ML IV SCH (13:09)
[2020-02-28] MEDS: AZITHROMYCIN 500 MG in NS 250 ML IV SCH (13:09)
[2020-02-28] MEDS: DAPTOmycin 350 MG in NS 50 ML IV SCH (15:12)
[2020-02-28 15:32] VITALS: BP_SYST 123
[2020-02-28] MEDS: INSULIN REGULAR, HUMAN 100 UNITS/ML, 10 ML VIAL (humuLIN R) SUBCUT PRN (17:59)
[2020-02-28 19:00] VITALS: BP_SYST 136
--- NOTE | 2020-02-28 19:15 | NUR ---
change of shift.pt.presents quiescent affect;calm,resting viewing tv programming.no c/o pain,nausea.iv access intact;patent iv fluids infusing.pt.presents colostomy;midline abdomen.intact;patent.pt utilizing the urinal w/in access of the pt.pt.capable to reposition self/ambulate.call light/telephone w/in access of the pt.
--- NOTE | 2020-02-28 19:15 | NUR ---
VS stable. No adverse events during shift. Pt still refusing surgery. Pt safety maintained during shift.
[2020-02-28 20:00] VITALS: BP_SYST 136
--- NOTE | 2020-02-28 20:00 | NUR ---
pt.assessed.v/s assessed values w/in normal limits.no c/o pain,nausea.iv access intact;patent iv fluids infusing.i have attended to the urinal measured/cleaned placed w/in access of the pt.i have apprised the pt.that snacks/beverages are available w/in the shift.no requests posited@this hour.pt.capable to reposition self.general status stable.respiratory status stable;unlabored.o2-sat%=98%.call light/telephone w/in access of the pt.
--- NOTE | 2020-02-28 21:00 | NUR ---
2100pmedication administered.no c/o pain,nausea,no requests posited.@this hour.
--- NOTE | 2020-02-28 22:00 | NUR ---
pt.assessed.pt.presents quiescent affect;calm,somnolent.per flacc pain mgx pt.absent facial grimaces/body posturing. iv access intact;patent iv fluids infusing.i have attended to the urinal:measured/cleaned placed w/in access of the pt. general status stable.respiratory status stable;unlabored.pt.capable to reposition self.call light/telephone placed w/in access of the pt.
--- NOTE | 2020-02-29 | NUR ---
pt.assessed.v/s assessed values w/in normal limits.no c/o pain,nausea.i have assessed the blood glucose value:110mg/dl. i have apprised the pt.of the blood glucose value.iv access intact;patent iv fluids infusing.i have attended to the urinal/ measured/cleaned placed w/in access of the pt.pt.capable to reposition self.call light/telephone placed w/in access of the pt.
[2020-02-29 00:07] VITALS: BP_SYST 136
[2020-02-29] MEDS: NACL 0.9% 1,000 ML IV SCH ×3 (01:30→20:28)
--- NOTE | 2020-02-29 02:00 | NUR ---
pt.assessed.pt.presents quiescent affect;calm,somnolent.per flacc pain mgx pt.absent facial grimaces/body posturing.iv fluids infusing.i have attended to the urinal:measured/cleaned placed w/in access of the pt.pt.capable to reposition self.general status stable.respiratory status stable;unlabored.call light/telephone w/in access of the pt.
--- NOTE | 2020-02-29 04:00 | NUR ---
pt.assessed.pt.presents quiescent affect;calm,somnolent.per flacc pain mgx pt.absent facial grimaces/body posturing. iv access intact;patent iv fluids infusing.urinal w/in access of the pt.pt.capable to reposition self.general status stable. respiratory status stable;unlabored.call light/telephone w/in access of the pt.
[2020-02-29 06:20] LABS: BASOPHILS # (AUTO) 0.1 K/uL (0.0-0.2); BASOPHILS % (AUTO) 0.7 % (0.0-2.0); EOSINOPHILS # (AUTO) 0.2 K/uL (0.0-0.4); EOSINOPHILS % (AUTO) 0.9 % (0.0-4.0); HEMATOCRIT 24.9 % (36-54); HEMOGLOBIN 8.6 g/dL (14.0-18.0); LYMPHOCYTES % (AUTO) 10.9 % (20.5-51.5); MEAN CORPUSCULAR HEMOGLOBIN 31 pg (27-31); MEAN CORPUSCULAR HGB CONC 34 % (32-36); MEAN CORPUSCULAR VOLUME 89 fL (79.0-98.0); MONOCYTES # (AUTO) 1.3 K/uL (0.0-1.0); MONOCYTES % (AUTO) 7.4 % (1.7-9.3); NEUTROPHILS # (AUTO) 14.6 K/uL (1.8-7.7); NEUTROPHILS % (AUTO) 80.1 % (40.0-70.0); PLATELET COUNT (AUTO) 400 K/uL (130-430); RED BLOOD CELL COUNT(AUTO) 2.79 MIL/uL (4.2-6.2); RED CELL DISTRIBUTION WIDTH 13.7 % (9.0-15.0); WHITE BLOOD COUNT (AUTO) 18.3 K/uL (4.8-10.8)
--- NOTE | 2020-02-29 06:30 | NUR ---
pt.assessed.pt.presents quiescent affect;calm,resting.i have assessed the blood glucose:value;98mg/dl.no c/o pain,nausea. no requests posited@this hour.i have attended to the urinal:measured/cleaned placed w/in access if the pt.iv access intact; patent iv fluids infusing.general status stable.pt.capable to reposition self/ambulate.call light/telephone placed w/in access of the pt.
[2020-02-29 06:54] LABS: ALANINE AMINOTRANSFERASE 16 U/L (12-78); ANION GAP 9 (5-15); ASPARTATE AMINOTRANSFERASE 12 U/L (10-37); CALCIUM 7.8 mg/dL (8.4-11.0); CHLORIDE 106 mmol/L (98-107); CREATININE 2.51 mg/dL (0.55-1.30); GLUCOSE 98 mg/dL (70-99); POTASSIUM 3.9 mmol/L (3.5-5.1); SODIUM SERUM 138 mmol/L (136-145); TOTAL BILIRUBIN 0.5 mg/dL (0.0-1.0); UREA NITROGEN, BLOOD 21 mg/dL (8-21)
--- NOTE | 2020-02-29 07:30 | NUR ---
OPENING NOTES, RECEIVED PT IN BED, PT IS AAOX2, DENIES PAIN, NO SOB, NO RESP DISTRESS. SAFETY PRECAUTION IN PLACE, CALL LIGHT IN REACH, BED IN LOW POSITIONE, ENCOURAGED PT TO CALL FOR ASSIST AND PAIN MEDS. WILL CONT TO MONITOR.
[2020-02-29 07:44] VITALS: BP_SYST 138
[2020-02-29] MEDS: AZITHROMYCIN 500 MG in NS 250 ML IV SCH (08:02)
--- NOTE | 2020-02-29 09:30 | NUR ---
PT'S IV GOT INFILTRATED, OLD IV ACCESS DISCONTINUED. WILL START NEW IV ACCESS.
--- NOTE | 2020-02-29 11:00 | NUR ---
PT RESTING IN BED, NEW IV ACCESS STARTED BY JULIA WEBB. PT CONNECTED BACK TO IV FLUIDS.
[2020-02-29] MEDS: cefTRIAXone 1 GM IVPB PREMIX 50 ML IV SCH (11:24)
[2020-02-29 11:25] VITALS: BP_SYST 129
[2020-02-29] MEDS: DAPTOmycin 350 MG in NS 50 ML IV SCH (13:51)
[2020-02-29 15:39] VITALS: BP_SYST 124
--- NOTE | 2020-02-29 18:49 | NUR ---
CLOSING NOTES, PT HAS BEEN STABLE, NO C/O PAIN, NO SOB. NO RESP DISTRESS. BLOOD SUGAR CHECKED. PT GIVEN SAMPLING CUP FOR SPUTUM, TOLD PT TO CALL NURSE WHEN SAMPLE IS AVAILABLE. WILL ENDORSE TO NIGHT NURSE.
--- NOTE | 2020-02-29 19:30 | NUR ---
OPENING NOTES, RECEIVED PT IN BED, PT IS AAOX2, DENIES PAIN, NO SOB, NO RESP DISTRESS NOTED. SAFETY PRECAUTION IN PLACE, CALL LIGHT IN REACH, BED IS LOCKED IN LOWEST POSITION, ENCOURAGED PT TO CALL FOR ASSIST. WILL CONT TO MONITOR.
[2020-02-29 20:00] VITALS: BP_SYST 142
--- NOTE | 2020-02-29 20:28 | NUR ---
NEW BAG OF NS HUNG AND SET TO INFUSE AT ORDERED RATE. NO S/S OF INFILTRATION NOTED AT IV SITE.
--- NOTE | 2020-02-29 22:15 | NUR ---
RESTING PT RESTING IN BED, NO S/S OF ACUTE DISTRESS NOTED. SAFETY MAINTAINED. WILL MONITOR.
[2020-03-01] VITALS: BP_SYST 129
--- NOTE | 2020-03-01 00:41 | NUR ---
ACCUCHECK BLOOD SUGAR OF 137, NO INSULIN COVERAGE INDICATED PER SLIDING SCALE.
--- NOTE | 2020-03-01 02:38 | NUR ---
RESTING PT RESTING IN BED, NO S/S OF ACUTE DISTRESS NOTED. SAFETY MAINTAINED. WILL MONITOR.
[2020-03-01] MEDS: NACL 0.9% 1,000 ML IV SCH ×2 (05:12→23:07)
--- NOTE | 2020-03-01 05:14 | NUR ---
ACCUCHECK BLOOD SUGAR OF 103, NO INSULIN COVERAGE INDICATED PER SLIDING SCALE.
--- NOTE | 2020-03-01 06:40 | NUR ---
CLOSING NOTES PT HAS BEEN STABLE, NO C/O PAIN, NO SOB. NO RESP DISTRESS. BLOOD SUGAR CHECKED. PT REINFORCED THAT SPUTUM SAMPLE IS NEEDED. SAMPLING CUP FOR SPUTUM AT BEDSIDE, TOLD PT TO CALL NURSE ABLE TO PRODUCE SAMPLE. SAFETY PRECAUTIONS MAINTAINED. WILL ENDORSE TO DAY SHIFT NURSE.
[2020-03-01 07:02] LABS: BASOPHILS # (AUTO) 0.1 K/uL (0.0-0.2); BASOPHILS % (AUTO) 0.6 % (0.0-2.0); EOSINOPHILS # (AUTO) 0.1 K/uL (0.0-0.4); EOSINOPHILS % (AUTO) 0.6 % (0.0-4.0); HEMATOCRIT 26.1 % (36-54); HEMOGLOBIN 8.8 g/dL (14.0-18.0); LYMPHOCYTES # (AUTO) 1.7 K/uL (1.0-5.5); LYMPHOCYTES % (AUTO) 10.2 % (20.5-51.5); MEAN CORPUSCULAR HEMOGLOBIN 30 pg (27-31); MEAN CORPUSCULAR HGB CONC 34 % (32-36); MEAN CORPUSCULAR VOLUME 89 fL (79.0-98.0); MONOCYTES # (AUTO) 1.2 K/uL (0.0-1.0); MONOCYTES % (AUTO) 7.1 % (1.7-9.3); NEUTROPHILS # (AUTO) 13.4 K/uL (1.8-7.7); NEUTROPHILS % (AUTO) 81.5 % (40.0-70.0); PLATELET COUNT (AUTO) 418 K/uL (130-430); RED BLOOD CELL COUNT(AUTO) 2.92 MIL/uL (4.2-6.2); RED CELL DISTRIBUTION WIDTH 13.3 % (9.0-15.0); WHITE BLOOD COUNT (AUTO) 16.5 K/uL (4.8-10.8)
[2020-03-01 07:48] LABS: ALANINE AMINOTRANSFERASE 20 U/L (12-78); ALBUMIN 2.1 g/dL (3.4-4.8); ANION GAP 11 (5-15); ASPARTATE AMINOTRANSFERASE 15 U/L (10-37); CALCIUM 7.9 mg/dL (8.4-11.0); CHLORIDE 106 mmol/L (98-107); CREATININE 2.29 mg/dL (0.55-1.30); GLUCOSE 104 mg/dL (70-99); POTASSIUM 3.4 mmol/L (3.5-5.1); SODIUM SERUM 137 mmol/L (136-145); TOTAL BILIRUBIN 0.5 mg/dL (0.0-1.0); UREA NITROGEN, BLOOD 18 mg/dL (8-21)
[2020-03-01 08:30] VITALS: BP_SYST 129
[2020-03-01] MEDS ORDERED: POTASSIUM CHLORIDE 30 MEQ in NS 250 ML IV ONE ×2 (08:30→09:30)
[2020-03-01] MEDS: AZITHROMYCIN 500 MG in NS 250 ML IV SCH (08:30)
[2020-03-01] MEDS: cefTRIAXone 1 GM IVPB PREMIX 50 ML IV SCH (10:47)
[2020-03-01 12:00] VITALS: BP_SYST 125
[2020-03-01] MEDS: DAPTOmycin 350 MG in NS 50 ML IV SCH (14:23)
[2020-03-01 15:46] VITALS: BP_SYST 128
--- NOTE | 2020-03-01 17:23 | NUR ---
Nutrition F/U RD reviewed pt's current EMR record including diet Hx, physician notes, nursing notes, pertinent labs/meds/procedures, care trends, and care activity. Admission Dx: Cholecystitis, Renal failure PMH: Pt presents w/: Acute cholecystitis, Acute Renal failure, Sepsis, Type 2 DM, Leukocytosis per MD notes. SARS-CoV-2 Ag rapid 02/22 Negative Current Diet Order/Nutrition Support: CCHO, cardiac, Glucerna BID x2 days Subjective Info: Per EMR, pt is alert/awake/confused/disoriented and continues to refuse Sx; abd is soft and non-distened w/ active bowel sounds, and last BM via colostomy 03/01. Abx seem to be improving infection per physician notes. Pt appears to be eating better too, and was ONS was implemented after last RD F/U. Current diet is adequate/appropriate. Pertinent Medications: Reviewed Pertinent Labs: Na 137 WNL (improved), BG 104 H, BUN 18 WNL (improved), CRE 2.29 H, TG 212 H (02/24), WBC 16.5 H Skin Integrity Comment: Tony scale: 20; no skin issues noted Current % PO 54% average x8 meals Estimated Energy Expenditure (kcals/day) 8639-3686 Kcal/day (30-35 kcal/kg CBW for sepsis) Estimated Protein Required (g/day) 59-70gm/day (1-1.2 gm/kg CBW for Renal Dz predialysis and sepsis) Estimated Fluid Required (l/day) per MD (ARF) Problem/Etiology/Signs/Symptoms Increased nutrient needs r/t metabolic demands AEB estimated calories for sepsis. *ongoing Altered nutrition related labs r/t endocrine and renal dysfunction AEB elevated BG, BUN and SCre lab values. *ongoing Inadequate protein-energy intake r/t poor appetite 2/2 pathophysiological factors AEB poor PO intake per pt report and c/o pain. *ongoing Expected Outcomes/Goals Monitor appetite and PO intake w/ goal of pt meeting more than 75% of estimated nutritional needs, labs trending WNL, normal GI function, skin integrity/wt maintenance. Dietitian Recommendations *Recommend CCHO, cardiac diet w/ Glucerna BID (ONS provides 440 kcal/day, 20 gm protein/day) Follow Up High Risk: F/U in 2-3 days Addendum: 03/01/20 at [address] CORRECTION: Follow Up Moderate Risk: F/U in 3-5 days
--- NOTE | 2020-03-01 17:27 | NUR ---
Dietitian Recommendations *Recommend CCHO, cardiac diet w/ Glucerna BID (ONS provides 440 kcal/day, 20 gm protein/day) LP, RD Please refer to Nutrition F/U for details.
[2020-03-01 19:35] VITALS: BP_SYST 145
--- NOTE | 2020-03-01 19:35 | NUR ---
INITIAL NOTE PATIENT IS STABLE AND LAYING IN BED. NO S/S OF RESPIRATORY DISTRESS NOTED. CALL LIGHT IN REACH. BED IS LOCKED, AND AT THE LOWEST POSITION. PATIENT EDUCATED ON BED ALARM. PT REFUSED. PLAN OF CARE IS DISCUSSED WITH THE PATIENT. FALL, SAFETY, ASPIRATION, AND RESPIRATORY PRECAUTIONS WILL BE IN PLACE THROUGHOUT THE SHIFT.
--- NOTE | 2020-03-01 21:35 | NUR ---
PATIENT IS STABLE AND RESTING IN BED. NO S/S OF RESPIRATORY DISTRESS NOTED. CALL LIGHT IN REACH.
[2020-03-01] MEDS: INSULIN REGULAR, HUMAN 100 UNITS/ML, 10 ML VIAL (humuLIN R) SUBCUT PRN (23:19)
[2020-03-02] VITALS: BP_SYST 132
--- NOTE | 2020-03-02 00:24 | NUR ---
PATIENT WALKED TO THE RESTROOM BY HIMSELF. PATIENT EMPTIED OUT COLOSTOMY BAG AND CLEANED HIMSELF. PT BOUGHT OWN DIAPERS FROM HOME. PATIENT EDUCATED ON USAGE OF DIAPER. PATIENT REQUESTED DIAPERS ON. LINENS CHANGED AT THIS TIME. PATIENT REPOSITION FOR COMFORT.
--- NOTE | 2020-03-02 06:53 | NUR ---
CLOSING NOTE PATIENT IS STABLE AND LAYING IN BED, RESTING. NO S/S OF RESPIRATORY DISTRESS NOTED. CALL LIGHT IN REACH. BED IS LOCKED, AND AT THE LOWEST POSITION. FALL, SAFETY, ASPIRATION, AND RESPIRATORY PRECAUTIONS HAS BEEN IN PLACE THROUGHOUT THE SHIFT. ALL NEED MET. WILL CONTINUE TO MONITOR UNTIL SBAR REPORT IS ENDORSED TO AM NURSE.
--- NOTE | 2020-03-02 07:50 | NUR ---
INITIAL NOTE RECEIVED PT IN BED, NO S/S OF DISTRESS OR SOB NOTED, PT HAS NO C/O PAIN AT THIS TIME, PT IN STABLE CONDITION. PT AAOX2, VERBAL, PROVIDED PT WITH REALITY ORIENTATION. IV CATHETER PATENT, NO SIGNS OF INFECTION OR INFILTRATION NOTED, RUNNING IV FLUIDS ORDERED. BED AT LOWEST POSITION, CALL LIGHT WITHIN REACH, WILL CONTINUE TO MONITOR PT FOR ANY CHANGES. FALL AND SAFETY PRECAUTIONS IN PLACE. PT IS WEARING A DIAPER, EDUCATED PT ON RISK OF SKIN BREAKDOWN DUE TO USING DIAPER, PT VERBALIZED UNDERSTANDING BUT WANTS TO CONTINUE USING DIAPER. CHARGE NURSE MADE AWARE.
[2020-03-02] MEDS: AZITHROMYCIN 500 MG in NS 250 ML IV SCH (08:42)
--- NOTE | 2020-03-02 10:24 | NUR ---
MD STACEY RUBIN, AWARE OF PATIENT'S CONDITION, NEW ORDERS GIVEN.
--- NOTE | 2020-03-02 10:55 | NUR ---
ROUNDS PT IN BED, NO S/S OF DISTRESS OR SOB NOTED, PT HAS NO C/O PAIN AT THIS TIME, PT IN STABLE CONDITION. PT RESTING COMFORTABLY, WILL CONTINUE TO MONITOR PT FOR ANY CHANGES.
[2020-03-02] MEDS: cefTRIAXone 1 GM IVPB PREMIX 50 ML IV SCH (11:14)
[2020-03-02] MEDS: INSULIN REGULAR, HUMAN 100 UNITS/ML, 10 ML VIAL (humuLIN R) SUBCUT PRN (11:18)
[2020-03-02 11:26] VITALS: BP_SYST 108
[2020-03-02] MEDS ORDERED: AMOX-426 PO (13:00)
--- NOTE | 2020-03-02 13:30 | NUR ---
FAMILY CALL SPOKE WITH ISABEL AND MADE HER AWARE PT WAS BEING D/C HOME TODAY PER SHE WILL COME [employer] AT 330PM TODAY, MADE HER AWARE THAT IF PAIN PERSISTS AFTER PO ANTIBIOTICS ARE FINISHED THEN HE NEEDS TO HAVE SURGERY.
[2020-03-02] MEDS: DAPTOmycin 350 MG in NS 50 ML IV SCH (13:32)
[2020-03-02 13:35] VITALS: BP_SYST 108
--- NOTE | 2020-03-02 15:30 | NUR ---
D/C Patient Patient given medication reconciliation form and D/C instructions. Exit Care provided. Patient verbalized understanding. MD discussed with patient the results and treatment provided. Ambulatory with assist for discharge to home. Patient in stable condition, ID band removed. IV catheter removed, intact and dressing applied, no active bleeding. Rx of Augmentin given. Patient educated on pain management. All belongings sent with patient.
--- NOTE | 2020-03-04 13:50 | NUR ---
Discharge Follow Up Phone Call Phoned patient, , and spoke with patient's . She stated they only speak [place] but was able to tell me that patient is doing okay, they filled patient's prescription, and have made a follow up appointment.
== END 2020-03-02 15:20 | disposition home or self-care (01) | DRG 871 ==
LOC: SED 12:32 → STU 16:49 → SMU 02-26 13:04
PROVIDERS: ADMIT Internal Medicine Hospice and Palliative Medicine; ATTEND Internal Medicine Hospice and Palliative Medicine
DX: A41.1 Sepsis due to other specified staphylococcus (principal); E43 Unspecified severe protein-calorie malnutrition; N39.0 Urinary tract infection, site not specified; N17.9 Acute kidney failure, unspecified; N18.4 Chronic kidney disease, stage 4 (severe); N12 Tubulo-interstitial nephritis, not specified as acute or chronic; K81.0 Acute cholecystitis; B96.20 Unspecified Escherichia coli [E. coli] as the cause of diseases classified elsewhere; E11.22 Type 2 diabetes mellitus with diabetic chronic kidney disease; F17.210 Nicotine dependence, cigarettes, uncomplicated; R00.1 Bradycardia, unspecified; I12.9 Hypertensive chronic kidney disease with stage 1 through stage 4 chronic kidney disease, or unspecified chronic kidney disease; Z20.828 Contact with and (suspected) exposure to other viral communicable diseases; Z79.4 Long term (current) use of insulin; Z87.442 Personal history of urinary calculi; Z90.49 Acquired absence of other specified parts of digestive tract; Z93.3 Colostomy status
CPT/HCPCS: 36415; 71045; 76376; 76700-TC; 78226; 80053; 80061; 81000-TC; 82105; 82962; 83036; 83605; 83690-TC; 83735-TC; 83880; 85025; 85610-TC; 86705; 86709; 86886; 86900; 86901; 87040-TC; 87086; 87186-TC; 87340; 93005; 96361; 96365; 99285; A9537; G0378; J0456; J0696; J0878; J1815; J1956; J2543; J3370; J3480; J7050